=== PATIENT | male | born 1990 | race American Indian/Alaskan Native ===

== ENCOUNTER 2022-06-15 08:34 | Emergency (ER) | payer MEDICARE, OTHER ==
[~2022-06-15] VITALS: Ht 180.3 cm; Wt 141.5 kg
[~2022-06-15 08:34] MED LIST: ALBU90OI6 INH; AMPDEX30CR; ARIP20; CONCERTA; ESCI10; NYSTRITC TOP; Naprosyn500 MG PO; Pepcid20 MG PO; Prednisone10 MG PO
== END 2022-06-15 13:20 | disposition left against medical advice (07) ==
LOC: ER 08:34
DX: Z76.0 Encounter for issue of repeat prescription (principal)
CPT/HCPCS: 99281